=== PATIENT | male | born 1985 | race Caucasian/White ===

== ENCOUNTER 2022-05-27 08:00 | Outpatient (CLI) | payer OTHER ==
--- NOTE | 2022-05-27 20:09 | XRAY Report ---
PROCEDURE: Foot 3 View RT INDICATIONS: RIGHT HEEL PAIN TECHNIQUE: 3 views of the foot were acquired. COMPARISON: None. FINDINGS: Bones: No definite fractures or dislocations. No suspicious bony lesions. Soft tissues: No tibiotalar joint effusion. Achilles tendon appears normal. IMPRESSION: 1. No definite fracture or dislocation. If clinical concern persists for a nondisplaced fracture, further evaluation may be obtained with MRI . Reviewed by: Tee Campbell MD on 05/27/2022 8:08 PM PDT Approved by: Tee Campbell MD on 05/27/2022 8:08 PM PDT Station ID: [id number]
== END 2022-05-27 23:59 | disposition home or self-care (01) ==
LOC: DI.S 08:00
PROVIDERS: ATTEND Emergency Medicine
DX: M79.671 Pain in right foot (principal)